=== PATIENT | female | born 1970 | race Caucasian/White ===

== ENCOUNTER 2020-01-29 14:34 | Emergency (ER) | payer BC, SELFPAY ==
[2020-01-29 14:37] VITALS: BP 118/94; PULSE 92; RESP 18; TEMP 36.6; O2SAT 99
[2020-01-29] MEDS: KETOROLAC 30 MG/ML VIAL (*BKC) IM (15:28)
--- NOTE | 2020-01-29 15:30 | PC.NURSE ---
patient medicated as ordered. ready to go home.
--- NOTE | 2020-01-29 15:51 | ED.GENADULT ---
HPI - General Adult General Chief complaint: Extremity Injury, Upper Stated complaint: hand pain x months Time Seen by Provider: 01/29/20 14:48 Source: patient Mode of arrival: ambulatory Limitations: no limitations History of Present Illness HPI narrative: Patient presents with chief complaint of right hand pain and stiffness that has been occurring over the past year. Patient states that she did have a nerve conduction test study performed but her provider left and she had to see another provider so she never received the results of those tests. Patient states she was also referred to a auto rebuilder and bilingual customer service specialist but they did not take her insurance so she was not able to see them. Patient denies new trauma to her hand but reports that she feels that she has some decreased range of motion over the past year with stiffness that do not allow full flexion or extension of the digits. Patient states a year ago when she was having worsening of her symptoms like she is now she was prescribed a steroid and it was helpful. Patient states she is here seeking referrals to hand specialist or bilingual customer service specialist to further evaluate her symptoms. She denies any new or acute trauma, fever, chills, erythema or any other symptoms. Related Data Allergies Allergy/AdvReac Type Severity Reaction Status Date / Time Penicillins Allergy Mild Rash Verified 06/16/18 09:01 Review of Systems Review of Systems: Narrative: CONSTITUTIONAL: Denies fever, chills, or sweats. EYES: Denies visual changes, redness, or discharge. ENT: Denies rhinorrhea, congestion, sore throat, or otalgia. CARDIOVASCULAR: Denies chest pain, palpitations, or edema. RESPIRATORY: Denies cough or dyspnea. GASTROINTESTINAL: Denies abdominal pain, nausea, vomiting, or diarrhea. GENITOURINARY: Denies dysuria or hematuria. SKIN: Denies rash or itching. MUSCULOSKELETAL: Reports right hand pain and stiffness denies back pain, joint pain, or myalgia. NEUROLOGIC: Denies headache, numbness, dizziness, or weakness. PSYCHIATRIC: Denies anxiety or depression. Exam Narrative: Exam Narrative: GENERAL: Well-appearing, well-nourished, and in no acute distress. HEAD: Normocephalic, atraumatic. EYES: PERRLA and EOMI. CHEST: Clear to auscultation. No respiratory distress. No wheezes rales or rhonchi HEART: Regular rate and rhythm. No murmur heard. Normal peripheral pulses. EXTREMITIES: There are no signs of acute trauma to the right hand. Patient has decreased flexion to the first second and third digits. The skin is rough and callused to the fingertips. There is no sign of cellulitis or septic joints. Sensation and cap refill intact. SKIN: Warm, dry, no rash. NEURO: No focal deficits. Alert and oriented x3. PSYCH: Normal mood and affect. Course Vital Signs Vital signs: Vital Signs Temperature 97.9 F 01/29/20 14:37 Pulse Rate 92 01/29/20 14:37 Respiratory Rate 18 01/29/20 14:37 Blood Pressure 118/94 H 01/29/20 14:37 Pulse Oximetry 99 01/29/20 14:37 Temperature 97.9 F 01/29/20 14:37 Pulse Rate 92 01/29/20 14:37 Respiratory Rate 18 01/29/20 14:37 Blood Pressure 118/94 H 01/29/20 14:37 Pulse Oximetry 99 01/29/20 14:37 Medical Decision Making MDM Narrative Medical decision making narrative: Discussed with the patient the need to follow-up with a hand specialist bilingual customer service specialist to further investigations her symptoms. Patient symptoms have been occurring for 1 year and she has not had any acute trauma or injury so she is at the point where she needs follow-up with a specialist. Patient states she has felt more inflammation over the past few weeks. I will give the patient Medrol Dosepak to assist with this discomfort as well as anti-inflammatory. Patient verbalized agreement and understanding with plan. Patient denies any other questions or concerns. Differential Diagnosis Differential Diagnosis: Septic joint, arthritis, trigger finger, fractu
[2020-01-29 16:20] VITALS: BP 148/78; PULSE 88; RESP 20; O2SAT 98
== END 2020-01-29 16:15 | disposition home or self-care (01) ==
PROVIDERS: Emergency Provider Emergency Medicine
DX: M79.641 Pain in right hand (principal); G89.29 Other chronic pain
CPT/HCPCS: 96372; 99283; J1885